=== PATIENT | female | born 1930 | race Caucasian/White ===

== ENCOUNTER 2018-03-13 11:29 | Inpatient (IN) | payer MEDICARE, OTHER ==
[2018-03-13] MEDS: KETOROLAC 15 MG INJ IV (12:32)
[2018-03-13 12:33] LABS: HEMATOCRIT 41.8 % (37.0-47.0); HEMOGLOBIN 13.4 g/dl (12.0-16.0); MEAN CORPUSCULAR HEMOGLOBIN 31.6 pg (29.0-33.0); MEAN CORPUSCULAR HGB CONC 32.1 g/dl (32.0-37.0); MEAN CORPUSCULAR VOLUME 98.6 fl (82.0-101.0); MEAN PLATELET VOLUME 12.8 fl (7.4-10.4); PLATELET COUNT 223 10^3/UL (140-415); RED BLOOD COUNT 4.24 10^6/ul (4.20-5.40)
[2018-03-13 12:33] LABS: WHITE BLOOD COUNT 14.9 10^3/ul (4.8-10.8)
[2018-03-13] MEDS: PIPER-TAZO 3.375 GM IV (PMX) 100 ML IVPB (12:33)
[2018-03-13] MEDS: SODIUM CHLORIDE 0.9% 1L BAG IV* (12:33)
[2018-03-13 12:35] LABS: ADD MAN DIFF? YES; POSITIVE DIFF @See below
[2018-03-13 12:43] LABS: ALANINE AMINOTRANSFERASE 13 IU/L (13-69); ALBUMIN 3.3 g/dl (3.3-4.9); ALBUMIN/GLOBULIN RATIO 1.32; ALKALINE PHOSPHATASE 285 IU/L (42-121); ANION GAP 22 (5-13); ASPARTATE AMINO TRANSFERASE 22 IU/L (15-46); BLOOD UREA NITROGEN 91 mg/dl (7-20); CALCIUM 7.8 mg/dl (8.4-10.2); CARBON DIOXIDE 17 mmol/L (21-31); CHLORIDE 101 mmol/L (97-110); CREATININE 2.86 mg/dl (0.44-1.00); GLUCOSE 140 mg/dl (70-220); POTASSIUM 3.6 mmol/L (3.5-5.1); SODIUM 140 mmol/L (135-144); TOTAL PROTEIN 5.8 g/dl (6.1-8.1)
[2018-03-13 12:54] LABS: INR 1.34; PROTIME 16.8 Sec (11.9-14.9); PT RATIO 1.3
[2018-03-13 12:55] LABS: LIPASE < 10 U/L (23-300); PARTIAL THROMBOPLASTIN TIME 30.6 Sec (23.0-35.0)
[2018-03-13] MEDS: morphine 4 MG/ML VIAL IV ×2 (12:59→14:14)
[2018-03-13] MEDS: ONDANSETRON 4 MG INJ IV (12:59)
[2018-03-13 13:00] LABS: ANISOCYTOSIS 1+ (0-0); BAND NEUTROPHILS #M 1.9 10^3/ul (0.0-0.6); BAND NEUTROPHILS % (M) 13 % (0-4); LYMPHOCYTES #M 1.4 10^3/ul (0.8-2.9); LYMPHOCYTES % (M) 10 % (15-51); MONOCYTE #M 0.5 10^3/ul (0.3-0.9); MONOCYTES % (M) 4 % (0-11); PLATELET ESTIMATE NORMAL; SEG NEUT #M 11.2 10^3/ul (1.6-7.5); SEGMENTED NEUTROPHILS (M) % 73 % (39-77); SMUDGE%M 30 % (0-0)
[2018-03-13] MEDS ORDERED: ACETAMINOPHEN 325 MG TAB PO ×2 (15:00→16:00)
[2018-03-13] MEDS ORDERED: ONDANSETRON 4 MG INJ IV ×2 (15:00→16:00)
[2018-03-13] MEDS ORDERED: DOCUSATE SODIUM 100 MG CAP PO (16:00)
[2018-03-13] MEDS ORDERED: ZOLPIDEM 5 MG TAB PO (16:00)
[2018-03-13] MEDS ORDERED: BISACODYL (EC) 5 MG TAB PO (16:00)
[2018-03-13] MEDS ORDERED: MAGNESIUM HYDROXIDE 30ML CUP PO (16:00)
[2018-03-13] MEDS ORDERED: HYDROCODONE/APAP (5/325) TAB PO (16:00)
[2018-03-13] MEDS ORDERED: NACL 0.9% 3 ML SYG IV (16:00)
[2018-03-13] MEDS: SOD CHLORIDE 0.9% 500 ML IV (16:08)
[2018-03-13] MEDS: SOD CHLORIDE 0.9% 1,000 ML IV ×3 (16:12→20:33)
[2018-03-13 17:32] LABS: ADD UMIC YES; UR ASCORBIC ACID NEGATIVE (NEGATIVE); UR BACTERIA FEW /HPF (NONE SEEN); UR BILIRUBIN (Dip) NEGATIVE (NEGATIVE); UR BLOOD (Dip) 1+ mg/dL (NEGATIVE); UR CLARITY CLOUDY (CLEAR); UR COLOR AMBER (YELLOW); UR GLUCOSE (Dip) NEGATIVE (NEGATIVE); UR KETONES (Dip) NEGATIVE (NEGATIVE); UR LEUKOCYTE ESTERASE (Dip) NEGATIVE Leu/ul (NEGATIVE); UR MUCUS FEW /HPF (NONE SEEN); UR NITRITE (Dip) NEGATIVE (NEGATIVE); UR RBC 2 /HPF (0-5); UR SPECIFIC GRAVITY (Dip) 1.016 (1.003-1.030); UR TOTAL PROTEIN (Dip) 1+ mg/dl (NEGATIVE); UR UROBILINOGEN (Dip) 1+ mg/dL (NEGATIVE); UR WBC 9 /HPF (0-5)
[2018-03-13] MEDS: CEFTRIAXONE 1 GM/50 ML (PMX) 50 ML IVPB (19:12)
[2018-03-13] MEDS: ROSUVASTATIN CALCIUM 40 MG TABLET PO (21:00)
[2018-03-13] MEDS: NORepinephrine 8MG/250 ML (PMX 250 ML IV (21:03)
[2018-03-13 21:27] LABS: LACTIC ACID 1.8 mmol/L (0.5-2.0)
[2018-03-13] MEDS: morphine 2 MG INJ IV (23:03)
[2018-03-14] MEDS: SOD CHLORIDE 0.9% 1,000 ML IV ×2 (02:08→11:50)
[2018-03-14 04:37] LABS: WHITE BLOOD COUNT 9.5 10^3/ul (4.8-10.8)
[2018-03-14 04:37] LABS: ABNORMAL IP MESSAGE 1; HEMATOCRIT 39.1 % (37.0-47.0); HEMOGLOBIN 12.3 g/dl (12.0-16.0); MEAN CORPUSCULAR HEMOGLOBIN 31.5 pg (29.0-33.0); MEAN CORPUSCULAR HGB CONC 31.5 g/dl (32.0-37.0); MEAN PLATELET VOLUME 13.1 fl (7.4-10.4); NUCLEATED RED BLOOD CELLS% 0.2 /100WBC (0.0-0.0); PLATELET COUNT 187 10^3/UL (140-415); RED BLOOD COUNT 3.91 10^6/ul (4.20-5.40); RED CELL DISTRIBUTION WIDTH 15.4 % (11.5-14.5)
[2018-03-14 04:42] LABS: ADD MAN DIFF? YES; POSITIVE DIFF @See below
[2018-03-14 04:55] LABS: ANION GAP 14 (5-13); BLOOD UREA NITROGEN 84 mg/dl (7-20); CALCIUM 6.2 mg/dl (8.4-10.2); CARBON DIOXIDE 16 mmol/L (21-31); CHLORIDE 113 mmol/L (97-110); CREATININE 2.39 mg/dl (0.44-1.00); GLUCOSE 87 mg/dl (70-220); MAGNESIUM 3.3 mg/dl (1.7-2.5); PHOSPHORUS 5.3 mg/dl (2.5-4.9); POTASSIUM 3.5 mmol/L (3.5-5.1); SODIUM 143 mmol/L (135-144)
[2018-03-14 04:59] LABS: LACTIC ACID 1.9 mmol/L (0.5-2.0)
[2018-03-14] MEDS: PANTOPRAZOLE (EC) 40 MG TAB PO (06:06)
[2018-03-14] MEDS: morphine 2 MG INJ IV ×2 (08:55→14:13)
[2018-03-14] MEDS: ENOXAPARIN 30 MG/0.3 ML SYG SC (08:55)
[2018-03-14] MEDS: ALLOPURINOL 100 MG TAB PO (08:56)
[2018-03-14] MEDS: POTASSIUM CHLORIDE (SR) 10 MEQ TAB PO (08:56)
[2018-03-14] MEDS: FOLIC ACID 1 MG TAB PO (08:56)
[2018-03-14] MEDS: ASPIRIN 81 MG TAB PO (08:56)
[2018-03-14] MEDS: PAROXETINE 20 MG TAB PO (09:00)
[2018-03-14] MEDS: CALCITRIOL 0.25 MCG CAP PO (09:00)
[2018-03-14] MEDS: CALCIUM/VITAMIN D (250/125) TAB PO (09:00)
[2018-03-14] MEDS ORDERED: VANCOMYCIN IV PER PHARMACY XX (09:30)
[2018-03-14 10:23] LABS: ANISOCYTOSIS 1+ (0-0); BAND NEUTROPHILS #M 3.5 10^3/ul (0.0-0.6); BAND NEUTROPHILS % (M) 37 % (0-4); BURR CELLS 3+ (0-0); ERYTHROBLAST% (NRBC) (M) 1 % (0-0); LYMPHOCYTES % (M) 11 % (15-51); METAMYELOCYTES %M 11 % (0-0); MONOCYTE #M 0.6 10^3/ul (0.3-0.9); MONOCYTES % (M) 7 % (0-11); MYELOCYTES #M 0.3 10^3/ul (0.0-0.0); MYELOCYTES % (M) 4 % (0-0); PLATELET ESTIMATE NORMAL; POIKILOCYTOSIS 3+ (0-0); PROMYELOCYTES % (M) 1 % (0-0); REACTIVE LYMPHOCYTES #M 0.1 10^3/ul (0.0-0.0); REACTIVE LYMPHOCYTES% (M) 2 % (0-0); SEG NEUT #M 2.9 10^3/ul (1.6-7.5); SEGMENTED NEUTROPHILS (M) % 27 % (39-77); SMUDGE%M 3 % (0-0)
[2018-03-14] MEDS ORDERED: PHENYLephrine 20MG IN 250 ML 250 ML (11:13)
[2018-03-14] MEDS: VANCOMYCIN 1.5 GM in SOD CHLORIDE 0.9% 250 ML IVPB (11:35)
[2018-03-14] MEDS ORDERED: EPINEPHrine 0.1 MG/ML SYG (11:56)
[2018-03-14] MEDS: PHENYLephrine 20MG IN 250 ML 250 ML IV (11:57)
[2018-03-14] MEDS ORDERED: PIPER-TAZO 2.25 GM (PMX) 50 ML IVPB ×2 (12:00→14:00)
[2018-03-14] MEDS ORDERED: SODIUM BICARBONATE (IV ADD) 150 MEQ in DEXTROSE 5% 1,000 ML IV (12:30)
[2018-03-14] MEDS ORDERED: VASOPRESSIN 60 UNIT in DEXTROSE 5% 57 ML IV (12:30)
[2018-03-14] MEDS ORDERED: EPINEPHrine 4 MG in SOD CHLORIDE 0.9% 246 ML IV (12:30)
[2018-03-14] MEDS ORDERED: EPINEPHrine 4 MG in DEXTROSE 5% 246 ML IV (12:30)
== END 2018-03-14 14:30 | disposition expired | DRG 871 ==
LOC: E/R 11:29 → ICU 14:36
PROC: 02HV33Z Insertion of Infusion Device into Superior Vena Cava, Percutaneous Approach (ICD-10-PCS; principal; 2018-03-13)
PROC: 0BH17EZ Insertion of Endotracheal Airway into Trachea, Via Natural or Artificial Opening (ICD-10-PCS; 2018-03-14)
PROC: 5A1935Z Respiratory Ventilation, Less than 24 Consecutive Hours (ICD-10-PCS; 2018-03-14)
PROC: 06HM33Z Insertion of Infusion Device into Right Femoral Vein, Percutaneous Approach (ICD-10-PCS; 2018-03-14)
PROC: B54BZZA Ultrasonography of Right Lower Extremity Veins, Guidance (ICD-10-PCS; 2018-03-14)
PROC: 5A12012 Performance of Cardiac Output, Single, Manual (ICD-10-PCS; 2018-03-14)
DX: A41.9 Sepsis, unspecified organism (principal); R65.21 Severe sepsis with septic shock; N17.9 Acute kidney failure, unspecified; N39.0 Urinary tract infection, site not specified; K59.00 Constipation, unspecified; E86.0 Dehydration; E78.5 Hyperlipidemia, unspecified; Z95.0 Presence of cardiac pacemaker; I12.9 Hypertensive chronic kidney disease with stage 1 through stage 4 chronic kidney disease, or unspecified chronic kidney disease; N18.9 Chronic kidney disease, unspecified; I73.9 Peripheral vascular disease, unspecified
CPT/HCPCS: 36415; 71045; 74176; 76775; 80048; 80053; 81001; 83036; 83605; 83690; 83735; 84100; 84484; 85025; 85610; 85730; 87040; 87081; 87086; 92950; 93005; 94002; 96365; 96375; 96376; 99285-25